=== PATIENT | female | born 1950 | race Caucasian/White ===

== ENCOUNTER 2018-01-07 09:06 | Day surgery (SDC) | payer MEDICARE, OTHER ==
[~2018-01-07] VITALS: Ht 170.2 cm; Wt 64.6 kg
[2018-01-07] MEDS ORDERED: METR59TL (09:55)
[2018-01-07] MEDS ORDERED: FISH OIL 1,0001 EACH PO (09:55)
== END 2018-01-07 11:27 | disposition home or self-care (01) ==
LOC: ORSCSDS 09:06
PROVIDERS: Ophthalmology
PROC: 08RK3JZ Replacement of Left Lens with Synthetic Substitute, Percutaneous Approach (ICD-10-PCS; principal; 2018-01-07 10:30)
DX: H25.12 Age-related nuclear cataract, left eye (principal)
CPT/HCPCS: J2250; J3301; J7040; V2632

== ENCOUNTER → 2018-06-17 | Outpatient (CLI) | payer MEDICARE, OTHER ==
[~2018-06-17] MED LIST: FISH OIL 1,0001 EACH PO; METR59TL
[2018-06-18 09:28] LABS: Candida species (DNA Probe) Negative (NEGATIVE); G. vaginalis (DNA Probe) Positive (NEGATIVE); T. vaginalis (DNA Probe) Negative (NEGATIVE)
== END | disposition home or self-care (01) ==
LOC: LAB SHORT 16:30 → LAB EV 16:30
PROVIDERS: Nurse Practitioner
DX: N89.8 Other specified noninflammatory disorders of vagina (principal); R36.9 Urethral discharge, unspecified
CPT/HCPCS: 87480; 87510; 87660

== ENCOUNTER → 2020-08-03 | Outpatient (CLI) | payer MEDICARE, OTHER | LOC: PLD 15:16 → LAB SHORT 15:16 | DX: R31.9 Hematuria, unspecified (principal); B95.1 Streptococcus, group B, as the cause of diseases classified elsewhere | CPT/HCPCS: 87086; 87147 ==

== ENCOUNTER 2024-08-05 08:31 | Day surgery (SDC) | payer MEDICARE ==
[~2024-08-05] VITALS: Ht 167.6 cm; Wt 64.2 kg
[~2024-08-05 08:31] MED LIST changes: +Balanced Salt Epinephrine Irrigation Solution 500 mL IR SCH; +Lidocaine HCl/Pf 1% 5 ML VIAL XX SCH; +Moxifloxacin HCL 0.5 MG/0.1 ML 0.4MLSYR RIGHTEYE SCH; +PHENYLEPHRINE\\TROPICAMIDE\\TETRACAINE OPHTHALMIC DILATING SOLN RIGHTEYE PRN; +Povidone-Iodine 450 DROP/30 ML Solution ONE; +Povidone-Iodine 450 DROP/30 ML Solution RIGHTEYE SCH; +Tetracaine HCl/Pf 0.5% Opth Soln 4 ml ONE; +Triamcinolone Inj Susp 40 MG / ML 1ML Vial INJ SCH; +Triamcinolone Inj Susp 40 MG / ML 1ML Vial ONE
[2024-08-05] MEDS ORDERED: Diazepam 5 MG Tab ONE (08:50)
[2024-08-05] MEDS ORDERED: Diazepam 2 MG Tab ONE (08:50)
[2024-08-05] MEDS ORDERED: LATA.005SO BOTHEYES (08:57)
[2024-08-05] MEDS ORDERED: Ondansetron HCl 2 MG / ML 2ML Vial ONE (09:28)
[2024-08-05 09:59] VITALS: BP 126/68
== END 2024-08-05 10:24 | disposition home or self-care (01) ==
LOC: ORSCSDS 08:31
PROVIDERS: Ophthalmology
PROC: 08RJ3JZ Replacement of Right Lens with Synthetic Substitute, Percutaneous Approach (ICD-10-PCS; principal; 2024-08-05 10:00)
DX: H25.811 Combined forms of age-related cataract, right eye (principal); Z96.1 Presence of intraocular lens; H40.1131 Primary open-angle glaucoma, bilateral, mild stage; H18.513 Endothelial corneal dystrophy, bilateral
CPT/HCPCS: A9270; J2405; J3301; V2632

== ENCOUNTER → 2024-11-09 | Outpatient (CLI) | payer MEDICARE ==
[~2024-11-09] MED LIST changes: -Balanced Salt Epinephrine Irrigation Solution 500 mL IR SCH; +LATA.005SO BOTHEYES; -Lidocaine HCl/Pf 1% 5 ML VIAL XX SCH; -Moxifloxacin HCL 0.5 MG/0.1 ML 0.4MLSYR RIGHTEYE SCH; -PHENYLEPHRINE\\TROPICAMIDE\\TETRACAINE OPHTHALMIC DILATING SOLN RIGHTEYE PRN; -Povidone-Iodine 450 DROP/30 ML Solution ONE; -Povidone-Iodine 450 DROP/30 ML Solution RIGHTEYE SCH; -Tetracaine HCl/Pf 0.5% Opth Soln 4 ml ONE; -Triamcinolone Inj Susp 40 MG / ML 1ML Vial INJ SCH; -Triamcinolone Inj Susp 40 MG / ML 1ML Vial ONE
== END ==
LOC: LAB 14:08 → LAB SHORT 14:08
DX: R30.0 Dysuria (principal)
CPT/HCPCS: 87086